=== PATIENT | female | born 1970 | race Caucasian/White ===

== ENCOUNTER → 2016-10-18 | Outpatient (CLI) | payer BC, OTHER ==
--- NOTE | 2016-10-19 11:08 | MM ---
Reason for exam: screening (asymptomatic). Last mammogram was performed 1 year and 1 month ago. History: Family history of breast cancer in grandmother at age 85. Physical Findings: A clinical breast exam by your physician is recommended on an annual basis and results should be correlated with mammographic findings. MG Screening Mammo w CAD Bilateral CC and MLO view(s) were taken. Prior study comparison: September 22, 2015, bilateral MG screening mammo w CAD. September 06, 2014, bilateral MG screening mammo w CAD. The breast tissue is heterogeneously dense. This may lower the sensitivity of mammography. There is no discrete abnormality. No significant changes when compared with prior studies. ASSESSMENT: Negative, BI-RAD 1 RECOMMENDATION: Routine screening mammogram of both breasts in 1 year.
== END | disposition home or self-care (01) ==
LOC: RADMAMWWP 14:49
PROVIDERS: ATTEND Obstetrics & Gynecology
DX: Z12.31 Encounter for screening mammogram for malignant neoplasm of breast (principal)

== ENCOUNTER → 2018-01-25 | Outpatient (CLI) | payer OTHER ==
--- NOTE | 2018-01-27 07:15 | MM ---
Reason for exam: screening (asymptomatic). Last mammogram was performed 1 year and 3 months ago. History: Family history of breast cancer in grandmother at age 85. Physical Findings: A clinical breast exam by your physician is recommended on an annual basis and results should be correlated with mammographic findings. MG Screening Mammo w CAD Bilateral CC, MLO, and XCCL view(s) were taken. Prior study comparison: October 18, 2016, bilateral MG screening mammo w CAD. September 22, 2015, bilateral MG screening mammo w CAD. There are scattered fibroglandular densities. No significant changes when compared with prior studies. ASSESSMENT: Negative, BI-RAD 1 RECOMMENDATION: Routine screening mammogram of both breasts in 1 year.
== END | disposition home or self-care (01) ==
LOC: RADMAMWWP 13:30
PROVIDERS: ATTEND Obstetrics & Gynecology
DX: Z12.31 Encounter for screening mammogram for malignant neoplasm of breast (principal)
CPT/HCPCS: 77067

== ENCOUNTER → 2019-03-23 | Outpatient (CLI) | payer OTHER ==
--- NOTE | 2019-03-26 13:59 | MM ---
Reason for exam: screening (asymptomatic). Last mammogram was performed 1 year and 2 months ago. History: Family history of breast cancer in grandmother at age 85. Physical Findings: A clinical breast exam by your physician is recommended on an annual basis and results should be correlated with mammographic findings. MG Screening Mammo w CAD Bilateral CC and MLO view(s) were taken. Prior study comparison: January 25, 2018, bilateral MG screening mammo w CAD. October 18, 2016, bilateral MG screening mammo w CAD. The breast tissue is heterogeneously dense. This may lower the sensitivity of mammography. No suspicious abnormality. No significant changes when compared with prior studies. ASSESSMENT: Negative, BI-RAD 1 RECOMMENDATION: Routine screening mammogram of both breasts in 1 year.
== END | disposition home or self-care (01) ==
LOC: RADMAMWWP 12:49
PROVIDERS: ATTEND Obstetrics & Gynecology
DX: Z12.31 Encounter for screening mammogram for malignant neoplasm of breast (principal)
CPT/HCPCS: 77067

== ENCOUNTER → 2019-03-24 | Outpatient (CLI) | payer OTHER ==
[2019-03-24 10:54] LABS: HCT 45.4 % (34.0-46.0); HGB 15.5 gm/dL (11.4-16.0); MCH 30.4 pg (25.0-35.0); MCHC 34.2 g/dL (31.0-37.0); Mean Platelet Volume 7.1; Platelet Count 313 k/uL (150-450); RBC 5.11 m/uL (3.80-5.40); RDW 12.4 % (11.5-15.5); WBC 8.8 k/uL (3.8-10.6)
[2019-03-24 17:00] LABS: Chol/HDL Ratio 2.83
[2019-03-24 17:08] LABS: T4, Free (Free Thyroxine) 1.2 ng/dL (0.80-1.80)
== END | disposition home or self-care (01) ==
LOC: LABWHC1 10:04
PROVIDERS: ATTEND Obstetrics & Gynecology
DX: Z13.220 Encounter for screening for lipoid disorders (principal); Z13.29 Encounter for screening for other suspected endocrine disorder
CPT/HCPCS: 36415; 80061; 82947; 84439; 84443; 84479; 85027

== ENCOUNTER → 2020-12-19 | Outpatient (CLI) | payer OTHER ==
--- NOTE | 2020-12-24 11:16 | MM ---
Reason for exam: screening (asymptomatic). Last mammogram was performed 1 year and 9 months ago. History: Family history of breast cancer in grandmother at age 85. Physical Findings: A clinical breast exam by your physician is recommended on an annual basis and results should be correlated with mammographic findings. MG Screening Mammo w CAD Bilateral CC and MLO view(s) were taken. Prior study comparison: March 23, 2019, bilateral MG screening mammo w CAD. January 25, 2018, bilateral MG screening mammo w CAD. ASSESSMENT: Benign, BI-RAD 2 RECOMMENDATION: Routine screening mammogram of both breasts in 1 year.
== END | disposition home or self-care (01) ==
LOC: RADMAMWWP 13:48
PROVIDERS: ATTEND Obstetrics & Gynecology
DX: Z12.31 Encounter for screening mammogram for malignant neoplasm of breast (principal); Z80.3 Family history of malignant neoplasm of breast
CPT/HCPCS: 77067

== ENCOUNTER → 2023-05-11 | Outpatient (CLI) | payer OTHER ==
[2023-05-11 08:53] VITALS: BP 111/76; PULSE 82; RESP 17; TEMP 98.2
--- NOTE | 2023-05-11 09:50 | P.HPOB ---
History of Present Illness H&P Date: 05/11/23 Chief Complaint: The patient is here for her routine gynecologic exam. This is a 52-year-old 012 with an LMP of approximately 2010. The patient is here to establish with this office. It has been about 2 years since her last pelvic exam. She previously saw Dr. Partida for her annual gynecologic exams. She is status post [facility] in 2010 for abnormal bleeding and this was benign. She has occasional hot flashes and night sweats. She has also been experiencing recent vaginal dryness which makes sexual intercourse uncomfortable. She is requesting a prescription for Diflucan since she typically gets 1 or 2 yeast infections per year. She is currently not having yeast infection symptoms. Review of Systems She believes she has gained about 8 pounds over the past year. Respiratory: She is getting over a cold. She denies cardiac or GI problems. Past Medical History Additional Past Medical History / Comment(s): Psoriasis. 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 History of Any Multi-Drug Resistant Organisms: None Reported Past Surgical History: Section Additional Past Surgical History / Comment(s): X2, [facility] 2010, LEFT OVARY CYST REMOVED(Benign). Thumb surgery. VTP. Past Anesthesia/Blood Transfusion Reactions: No Reported Reaction Past Psychological History: No Psychological Hx Reported Smoking Status: Current every day smoker (Just under one pack of cigarettes per day.) Past Alcohol Use History: None Reported Past Drug Use History: None Reported Additional History: She has been since 1990. 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 - Past Family History Mother Family Medical History: No Reported History Additional Family Medical History / Comment(s): Maternal grandmother had diabetes and breast cancer at age 90. Father Family Medical History: Liver Disease Additional Family Medical History / Comment(s): Alcohol-related liver disease. suddenly of unknown causes, possible heart attack. Paternal aunt had pancreatic cancer. Medications and Allergies Home Medications Medication Instructions Recorded Confirmed Type No Known Home Medications 05/11/23 05/11/23 History Allergies Allergy/AdvReac Type Severity Reaction Status Date / Time codeine Allergy Vomiting Unverified 05/11/23 08:41 Penicillins Allergy Unknown Unverified 05/11/23 08:41 Childhood Exam Vital Signs Temp Pulse Resp BP Pulse Ox 05/11/23 08:42 98.2 F 82 17 111/76 99 Intake and Output 05/10/23 05/11/23 05/11/23 22:59 06:59 14:59 Other: Weight 61.689 kg Height 5 foot 1 inch, weight 136 pounds, BMI 25.7. This is a well-developed well-nourished white female who is alert and oriented times 3 in no acute distress. HEENT: Within normal limits. NECK: Supple without mass or thyromegaly. CHEST AND LUNGS: Clear to auscultation. HEART: Regular rate and rhythm. BREASTS: Are without mass or discharge. AXILLARY EXAM: Negative for adenopathy. BACK: Negative for CVA tenderness. ABDOMEN: Soft, nontender, without palpable masses. PELVIC EXAM: External genitalia appears normal with mild atrophy. Vagina appears normal with mild atrophy. There is no evidence of prolapse. Bimanual examination is negative for mass or tenderness. RECTAL EXAM: Rectovaginal exam is negative for mass or tenderness and is negative for occult blood. EXTREMITIES: Nontender. IMPRESSION: 1. 52-year-old perimenopausal female status post [facility] for benign reasons, with normal gynecologic exam. 2. Mild dyspareunia secondary to vaginal dryness probably secondary to menopausal atrophy 3. History of occasional yeast infections which have been treated with Diflucan in the past. No current yeast infection symptoms. PLAN: 1. Pap smears have been discontinued. 2. Self breast awareness was discussed with the patient. We have also discussed symptoms associated with inflammatory breast cancer. 3. Screening mammogram is scheduled later this week. The order slip was given to the patient for this. 4. Osteoporosis prevention was discussed. I have stressed the importance of adequate calcium, vitamin D and regular exercise. Recommended amounts of calcium and vitamin D were also discussed. 5. I have recommended that she try an [id number] lubricant with intercourse to see if this helps with her vaginal dryness. We also discussed the option of vaginal estrogen if lubrication alone is inadequate. 6. Diflucan 150 mg by mouth once if she is having these infection symptoms. The electronic prescription will be sent to [facility] in [place] with 2 refills. 7. Colorectal cancer screening was discussed and she states she had a Cologuard test done for this within the past couple of years. 8. She was advised to return in one year for her annual well woman exam.
== END ==
LOC: WWCWWP 08:29
PROVIDERS: ATTEND Obstetrics & Gynecology
DX: N94.10 Unspecified dyspareunia (principal); F17.210 Nicotine dependence, cigarettes, uncomplicated; Z80.3 Family history of malignant neoplasm of breast; Z88.0 Allergy status to penicillin; Z90.721 Acquired absence of ovaries, unilateral; Z78.0 Asymptomatic menopausal state; Z88.5 Allergy status to narcotic agent

== ENCOUNTER → 2023-05-13 | Outpatient (CLI) | payer OTHER ==
--- NOTE | 2023-05-16 09:07 | MM ---
Reason for Exam: Screening (asymptomatic). Last mammogram was performed 2 year(s) and 5 month(s) ago. Patient History: Menarche at age 13. First Full-Term at age 22. Hysterectomy at age 38. Maternal grandmother had breast cancer, age 85. Risk Values: Ave 5 year model risk: 0.9%. NCI Lifetime model risk: 7.9%. Prior Study Comparison: 01/25/2018 Bilateral Screening Mammogram, [facility]. 03/23/2019 Bilateral Screening Mammogram, [facility]. 12/19/2020 Bilateral Screening Mammogram, [facility]. Tissue Density: There are scattered fibroglandular densities. Findings: Analyzed By CAD. There is no suspicious group of microcalcifications or new suspicious mass. Overall Assessment: Negative, BI-RAD 1 Management: Screening Mammogram of both breasts in [address] [facility] will attempt to contact patient to return for supplemental views and ultrasound if indicated. Patient should continue monthly self-breast exams. A clinical breast exam by your physician is recommended on an annual basis. This exam should not preclude additional follow-up of suspicious palpable abnormalities. Note on Ave scores and lifetime risk: 1. A Ave score greater than 3% is considered moderate risk. If this is the case, consider specialist referral to assess eligibility for a risk reducing agent. 2. If overall lifetime risk for the development of breast cancer is 20% or higher, the patient may qualify for future screening with alternating mammogram and breast MRI. Electronically signed and approved by: Delvin Hale DO
== END | disposition home or self-care (01) ==
LOC: RADMAMWWP 16:37
PROVIDERS: ATTEND Obstetrics & Gynecology
DX: Z12.31 Encounter for screening mammogram for malignant neoplasm of breast (principal); Z80.3 Family history of malignant neoplasm of breast
CPT/HCPCS: 77067

== ENCOUNTER → 2024-05-21 | Outpatient (CLI) | payer OTHER ==
--- NOTE | 2024-05-23 15:17 | MM ---
Reason for Exam: Screening (asymptomatic). Last screening mammogram was performed 12 month(s) ago. Patient History: Menarche at age 13. First Full-Term at age 22. Hysterectomy at age 38. Maternal grandmother had breast cancer, age 85. Risk Values: Ave 5 year model risk: 0.9%. NCI Lifetime model risk: 7.8%. Prior Study Comparison: 03/23/2019 Bilateral Screening Mammogram, [facility]. 12/19/2020 Bilateral Screening Mammogram, [facility]. 05/13/2023 Bilateral MG screening mammo w CAD, [facility]. Tissue Density: There are scattered areas of fibroglandular density. Findings: Analyzed By CAD. Focal asymmetry right upper outer quadrant remains unchanged. There is no suspicious group of microcalcifications or new suspicious mass in either breast. Overall Assessment: Negative, BI-RAD 1 Management: Screening Mammogram of both breasts in 1 year. Patient should continue monthly self-breast exams. A clinical breast exam by your physician is recommended on an annual basis. This exam should not preclude additional follow-up of suspicious palpable abnormalities. Note on Ave scores and lifetime risk: 1. A Ave score greater than 3% is considered moderate risk. If this is the case, consider specialist referral to assess eligibility for a risk reducing agent. 2. If overall lifetime risk for the development of breast cancer is 20% or higher, the patient may qualify for future screening with alternating mammogram and breast MRI. [facility], , 05/23/2024 3:14 PM. Electronically signed and approved by: Josefina Kowalski M.D. Radiologist
== END | disposition home or self-care (01) ==
LOC: RADMAMWWP 15:38
PROVIDERS: ATTEND Internal Medicine
DX: Z12.31 Encounter for screening mammogram for malignant neoplasm of breast (principal); R92.323 Mammographic fibroglandular density, bilateral breasts; Z80.3 Family history of malignant neoplasm of breast
CPT/HCPCS: 77067